=== PATIENT | male | born 1950 | race Caucasian/White ===

== ENCOUNTER 2016-10-15 19:32 | Emergency (ER) | payer BC ==
[2016-10-15] MEDS ORDERED: PRILOSEC OTC20 M1 PO (20:19)
[2016-10-15] MEDS ORDERED: XARELTO15 M1 PO (20:19)
== END 2016-10-15 21:40 ==
LOC: EDMED 19:32
PROC: 0S9C3ZZ Drainage of Right Knee Joint, Percutaneous Approach (ICD-10-PCS; principal; 2016-10-15)
DX: M25.461 Effusion, right knee (principal); Z86.711 Personal history of pulmonary embolism
CPT/HCPCS: J1040

== ENCOUNTER 2017-01-02 15:21 | Emergency (ER) | payer BC ==
[~2017-01-02 15:21] MED LIST: PRILOSEC OTC20 M1 PO; XARELTO15 M1 PO
[2017-01-02 15:43] LABS: BASO % 0.6 % (0-2); EOS % 3.7 % (0-7); EOSINOPHIL ABSOLUTE COUNT 0.2 tho/cmm (0.0-0.7); HCT-HEMATOCRIT 46.1 % (36.0-53.5); HGB-HEMOGLOBIN 16.2 gm/dl (13.5-17.0); IMMATURE GRANULOCYTES ABSOLUTE 0.03 tho/cmm (0-0.03); IMMATURE GRANULOCYTES PERCENT 0.6 % (0-0.3); LYMPH % 27.5 % (20-45); LYMPH ABSOLUTE COUNT 1.5 tho/cmm (0.8-4.5); MCH (MEAN CORPUSCULAR HGB) 32.5 pg (28.0-32.0); MCHC MEAN CORPUSCULAR HGB CONC 35.1 % (32.0-36.0); MCV (MEAN CELL VOLUME) 92.6 fl (82.0-96.0); MEAN PLATELET VOLUME 10.2 cmc (9.4-12.4); MONO % 8.6 % (0-12); MONOCYTE ABSOLUTE COUNT 0.5 tho/cmm (0.0-1.2); NEUTROPHIL ABSOLUTE COUNT 3.2 tho/cmm (1.6-8.0); NEUTROPHIL-AUTOMATED 3.2 tho/cmm (1.6-8.0); PLATELET COUNT 180 tho/cmm (150-450); RED BLOOD COUNT 4.98 mil/cmm (4.40-5.70); WHITE BLOOD COUNT 5.4 tho/cmm (4.0-10.0)
[2017-01-02] MEDS ORDERED: ALEVE220 M4 PO (15:48)
[2017-01-02 15:52] LABS: INR 0.9 INR (0.9-1.1); PROTHROMBIN TIME 10.6 SECONDS (9.0-13.6)
[2017-01-02 16:01] LABS: ALB/GLOB RATIO 1.2 (0.8-2.0); ALCOHOL (ETOH) <10 mg/dl (<10); ALKALINE PHOSPHATASE 62 U/L (33-138); ALT/SGPT 34 U/L (12-78); ANION GAP 11 mmol/L (0-20); AST/SGOT 24 U/L (10-40); BILIRUBIN,TOTAL 0.6 mg/dl (0.0-1.5); BLOOD UREA NITROGEN 18 mg/dl (6-24); CALCIUM 8.7 mg/dl (8.5-10.5); CARBON DIOXIDE-VENOUS 27 mmol/L (22-32); CHLORIDE 108 mmol/l (96-110); GLUCOSE 99 mg/dL (70-110); POTASSIUM 4.2 mmol/L (3.7-5.1); SODIUM 142 mmol/L (135-145); eGFR VALUE FOR BLACK 82 mL/Min
== END 2017-01-02 17:36 ==
LOC: EDMED 15:21
PROVIDERS: Emergency Medicine
DX: R07.89 Other chest pain (principal); Z86.718 Personal history of other venous thrombosis and embolism; Z90.49 Acquired absence of other specified parts of digestive tract; Z79.899 Other long term (current) drug therapy
CPT/HCPCS: G0480; J7030